=== PATIENT | male | born 1980 ===

== ENCOUNTER 2020-12-24 14:04 | Inpatient (IN) | payer SELFPAY ==
[2020-12-24 22:57] VITALS: BMI 43.7
[2020-12-25] MEDS ORDERED: Acetaminophen 325 MG TAB PO PRN (00:07)
[2020-12-25] MEDS ORDERED: Senokot S 8.6-50 MG TAB PO PRN (00:07)
[2020-12-25] MEDS ORDERED: Dextrose 5% in Water 1,000 ML IV PRN (00:16)
[2020-12-25] MEDS ORDERED: Dextrose 50% Abboject 50 ML SYRINGE SLOW IVP PRN (00:16)
[2020-12-25] MEDS: HumaLOG 300 UNITS/3 ML VIAL SC PRN ×4 (01:05→23:05)
[2020-12-25 01:25] LABS: Hemoglobin A1c 11.2 % (4.0-6.0)
[2020-12-25 01:27] LABS: ALT (SGPT) 24 U/L (8-55); AST (SGOT) 29 U/L (5-34); Albumin 3.4 g/dL (3.5-5.0); Alkaline Phosphatase 113 U/L (40-110); Anion Gap 16 mmol/L (10-20); BUN (Urea Nitrogen) 19 mg/dL (8.9-20.6); Bilirubin, Total 0.4 mg/dL (0.2-1.2); Calc. Creatinine Clearance 221 mL/min (70-130); Calcium 9.5 mg/dL (7.8-10.44); Carbon Dioxide 27 mmol/L (22-29); Chloride 93 mmol/L (98-107); Globulin 4.7 g/dL (2.4-3.5); Glucose 330 mg/dL (70-105); Potassium 3.5 mmol/L (3.5-5.1); Protein, Total 8.1 g/dL (6.0-8.3); Sodium 132 mmol/L (136-145)
[2020-12-25 01:40] LABS: Band 4 % (5-11); Hemoglobin 13.4 g/dL (14.0-18.0); Lymphocytes 11 % (21-51); MDiff Complete? YES; Mean Corpuscular Hemoglobin 29.8 pg (27.0-31.0); Mean Corpuscular Volume 90.2 fL (78.0-98.0); Mean Platelet Volume 7.4 fL (7.4-10.4); Monocytes 1 % (0-10); Neutrophil 84 % (42-75); Platelet Count 476 thou/uL (130-400); RBC Distribution Width 11.8 % (11.5-14.5); Red Blood Cell (RBC) Count 4.48 mill/uL (4.70-6.10); White Blood Cell (WBC) Count 18.5 thou/uL (4.8-10.8)
--- NOTE | 2020-12-25 01:41 | HP ---
This is AAMIR Mehta dictating a report for Yamini Kruger MD. CHIEF COMPLAINT: Shortness of breath. HISTORY OF PRESENT ILLNESS: Mr. Christensen is a 40-year-old male, who went to an emergency room in [place], [place], today, for evaluation of worsening shortness of breath and decreasing O2 saturation while at home. He reports his symptoms started around December 16, has been generally not feeling well, some nausea, shortness of breath, fever, chills. The patient sought care several days ago, was started on Levaquin for pneumonitis and sent home. The patient returned to the emergency room on 12/24/2020, as his PO2 sats dropped to in the 80s around 86%. He was worked up; found to have an elevated white blood cell count, ground-glass opacity on the CT chest; has had several negative COVID tests; and was admitted for the hypoxia, which responded initially to about 4 L of nasal cannula and then dropped, and so he is currently on 2 L of nasal cannula, and his O2 sats fluctuate between 86% and 99% depending on how active he is being at that time. He reports some past medical history of hypertension, hypercholesterolemia, and prediabetes. It is of note that his blood sugar here when on arrival is in the 300s. He is being admitted to telemetry for further management. The patient did try vaping CBD cartridge about 2 weeks ago prior to the start of this episode of shortness of breath and pneumonitis. It is possible that he has sustained some lung inflammation from that. PAST MEDICAL HISTORY: Please see HPI. REVIEW OF SYSTEMS: The patient reports fever, shortness of breath, cough, nausea since the . He denies any chest pain. All systems are reviewed and are negative unless mentioned above or in HPI. SURGICAL HISTORY: None. FAMILY HISTORY: Noncontributory. ALLERGIES: NONE. MEDICATIONS: He takes lisinopril 20 mg p.o. daily. He was placed on Levaquin 2 days ago daily. PHYSICAL EXAMINATION: VITAL SIGNS: Temperature 99.7, pulse is 107, respiratory rate is 24, pO2 sats are 99% on 6 L of nasal cannula, blood pressure is 139/76. CONSTITUTIONAL: He is alert and oriented to person, place, and time. He appears nontoxic appearing. He appears comfortable. Able to complete full sentences. HEENT: Head is atraumatic and normocephalic. Mucous membranes are moist. Mouth is normal. Pupils are equally round and reactive to light. NECK: Normal range of motion. Trachea is midline. RESPIRATORY/CHEST: Chest expansion is equal. He has mild decreased breath sounds in the bases, otherwise clear. CARDIOVASCULAR: He is tachycardic. Regular rhythm. ABDOMEN: Bowel sounds are heard. Nontender on palpation. EXTREMITIES: Upper extremities: Normal range of motion. Motor strength is normal. Radial pulse is normal. Lower extremity: Normal range of motion. Motor strength is normal. Pedal pulses are normal. PLAN/ASSESSMENT: 1. Pneumonitis, certainly appears on CT as similar to COVID-19 infection, although his previous COVID-19 tests he states are negative. We will repeat that in a viral panel today. Albuterol as needed q.4 hours. We have started some dexamethasone 6 mg. As the symptoms suggest COVID-19, we have added additional tests, ferritin, CRP to help us distinguish this. He states he got a steroid injection 2 days ago along with the Levaquin, and this could account for the leukocytosis and his elevated blood sugar. We will keep him on isolation precautions and also continue the Levaquin, which can be deescalated if we believe this is viral. 2. History of hypertension. We will continue his lisinopril. 3. Hyperglycemia. We will add Accu-Cheks a.c. and at bedtime, sliding scale for coverage. We have added an A1c. 4. PUD and DVT prevention started. 5. Case discussed with Dr. Kruger. 6. Hospital course dependent on clinical findings. Job ID: [id number]
[2020-12-25 01:57] LABS: Thyroid Stimulating Hormone 0.5335 uIU/mL (0.35-4.94)
[2020-12-25 05:17] LABS: Ferritin 1265.51 ng/mL (22-322)
[2020-12-25 05:51] LABS: SARS-CoV-2 PCR by NAA Not Detected (NotDetected)
[2020-12-25] MEDS ORDERED: Dexamethasone 4 MG TAB PO SCH (08:00)
[2020-12-25] MEDS ORDERED: FLU VACC QS2020-21(6MOS UP)/PF 60 MCG/0.5 ML SYRINGE IM ONE (09:00)
--- NOTE | 2020-12-25 10:04 | CT ---
EXAM: Chest CT scan without contrast: HISTORY: Pneumonia, questionable Covid, cough, shortness of breath COMPARISON: None FINDINGS: No mediastinal mass or adenopathy. Very extensive diffuse groundglass opacity changes throughout the entire aspects of both right and le ft lungs raising concern for the possibility of extensive bilateral edema versus diffuse atypical pneumonia, although, this does not have a typical appearance of Covid pneumonia. Some other type of v iral or atypical pneumonia is certainly a consideration. No pleural or pericardial effusion. Fatty changes in the liver. 2.6 cm right renal cyst. IMPRESSION: Very extensive diffuse groundglass opacity changes throughout the vast majority of both right and lef t lungs concerning for the possibility of extensive edema versus atypical or viral pneumonia, although this does not have a characteristic appearance of Covid pneumonia.
[2020-12-25] MEDS: Lisinopril 20 MG TAB PO SCH (10:51)
[2020-12-25] MEDS: Enoxaparin Sodium 40 MG/0.4 ML SYRINGE SC SCH (10:51)
[2020-12-25] MEDS: Insulin Glargine 15 UNITS in Pre-Filled Syringe 1 EACH SC SCH ×2 (10:52→23:05)
[2020-12-25 13:27] LABS: HBCM Index 0.08 S/CO (0-0.79); HBSAg Index 0.21 S/CO (0-0.99); HIV (1/2) Antibody/Antigen Non-Reactive (NonReactive); HIV 1/2 INDEX 0.11 S/CO (<1.00); Hep A IgM AB Non-Reactive (NonReactive); Hep A IgM S/CO 0.17 S/CO (0-0.79); Hep B Surf Ag Non-Reactive S/CO (NonReactive); Hep C IgG Ab Non-Reactive (NonReactive); Hep C Index 0.08 S/CO (0-0.79); Hepatitis B Core IgM Abs Non-Reactive (NonReactive)
--- NOTE | 2020-12-25 13:41 | PDOC.HOSPP ---
- Subjective Encounter Date: 12/25/20 Encounter Time: 08:45 Subjective: is on 6 lts nc, feels comfortable on O2 is mobilizing around bed says he started CBD oil and vaping 2 weeks back and his sob started a week back lives with his and children who are not sick is unemployed from 4 months, works in construction has cough with expectoration of yellow sputum, no blood in it. says he had 3 previous covid tests done which were all -ve - Objective Vital Signs & Weight: Vital Signs (12 hours) Temp Pulse Resp BP Pulse Ox 12/25/20 11:03 99.8 F H 113 H 28 H 149/82 H 95 12/25/20 07:34 98.4 F 111 H 16 137/78 100 12/25/20 06:15 99.5 F 104 H 18 144/65 H 99 Weight Weight 271 lb 1.6 oz I&O: 12/24/20 12/25/20 12/26/20 06:59 06:59 06:59 Intake Total 940 Output Total 825 Balance 115 Result Diagrams: 12/25/20 01:00 12/25/20 01:00 Additional Labs: Accuchecks 12/25/20 12/25/20 12/24/20 10:21 06:06 23:25 POC Glucose 338 H 293 H 315 H Hospitalist ROS - Medication Medications: Active Medications Generic Name Dose Route Start Last Admin Trade Name Freq PRN Reason Stop Dose Admin Albuterol/Ipratropium 3 ml 12/25/20 07:00 12/25/20 10:48 Ipratropium/Albuterol Sulfate 3 Ml Neb NEB Not Given [id number] KARIN Dexamethasone 6 mg 12/25/20 08:00 12/25/20 10:51 Dexamethasone 4 Mg Tab PO 6 mg QAM- KARIN Administration Enoxaparin Sodium 40 mg 12/25/20 09:00 12/25/20 10:51 Enoxaparin Sodium 40 Mg/0.4 Ml Syringe SC 40 mg 0900 KARIN Administration Insulin Glargine 15 units/ 0.15 mls @ 0 mls/hr 12/25/20 09:00 12/25/20 10:52 Miscellaneous Medication SC 0.15 mls BID KARIN Administration Insulin Human Lispro 0 units 12/25/20 00:16 12/25/20 06:12 Humalog 300 Units/3 Ml Vial SC 4 unit .MILD SLIDING SCALE PRN Administration Mild Correctional Scale Insulin Human Lispro 0 units 12/25/20 00:16 12/25/20 01:05 Humalog 300 Units/3 Ml Vial SC 4 unit .BEDTIME SLIDING SC PRN Administration Bedtime Correctional Scale Levofloxacin 750 mg 12/25/20 06:00 12/25/20 06:04 Levofloxacin 750 Mg Tab PO 750 mg 0600 KARIN Administration Lisinopril 20 mg 12/25/20 09:00 12/25/20 10:51 Lisinopril 20 Mg Tab PO 20 mg DAILY KARIN Administration Hospitalist Exam Vitals: Vital Signs (12 hours) Temp Pulse Resp BP Pulse Ox 12/25/20 11:03 99.8 F H 113 H 28 H 149/82 H 95 12/25/20 07:34 98.4 F 111 H 16 137/78 100 12/25/20 06:15 99.5 F 104 H 18 144/65 H 99 Weight Weight 271 lb 1.6 oz General Appearance: awake alert Eye: PERRL, anicteric sclera ENT: no oropharyngeal lesions, moist mucosa Neck: supple, no JVD Heart: RRR, no murmur Respiratory: no wheezes, rales, rhonchi Gastrointestinal: soft, non-tender, non-distended, normal bowel sounds Extremities: no cyanosis, no edema Neurological: cranial nerve grossly intact, no focal deficits Psychiatric: normal affect, A&O x 3 Hosp A/P (1) Pneumonia due to COVID-19 virus Code(s): U07.1 - COVID-19; J12.82 - PNEUMONIA DUE TO CORONAVIRUS DISEASE 2019 Status: Suspected (2) Acute respiratory failure with hypoxia Code(s): J96.01 - ACUTE RESPIRATORY FAILURE WITH HYPOXIA Status: Acute (3) Morbid obesity with BMI of 40.0-44.9, adult Code(s): E66.01 - MORBID (SEVERE) OBESITY DUE TO EXCESS CALORIES; Z68.41 - BODY MASS INDEX [BMI]40.0-44.9, ADULT Status: Chronic (4) HTN (hypertension) Code(s): I10 - ESSENTIAL (PRIMARY) HYPERTENSION Status: Chronic Qualifiers: Hypertension type: essential hypertension Qualified Code(s): I10 - Essential (primary) hypertension (5) DM (diabetes mellitus), type 2, uncontrolled Code(s): E11.65 - TYPE 2 DIABETES MELLITUS WITH HYPERGLYCEMIA Status: Acute Qualifiers: Glycemic state: with hyperglycemia Qualified Code(s): E11.65 - Type 2 diabetes mellitus with hyperglycemia - Plan is on dexamethasone, alb inh, levaquin due to atypical features of pna nearly 4 covid 19 tests were -ve per patient, staff to obtain the previous 3 -ve test results lantus bid with coverage, lisinipril to ambulate as tolerated HIV, hep panel, ID consultation, not sure if his symptoms and imaging are related to cbd oil vaping? has high crp of 37, elevated ldh levels hemostable d/w over phone per patients request and gave full updates.
[2020-12-25] MEDS: methylPREDNISolone Sod Succ 40 MG VIAL IVP SCH ×2 (18:15→23:07)
[2020-12-26] MEDS: HumaLOG 300 UNITS/3 ML VIAL SC PRN ×4 (06:07→20:44)
[2020-12-26] MEDS: methylPREDNISolone Sod Succ 40 MG VIAL IVP SCH ×3 (06:09→18:27)
[2020-12-26 06:32] LABS: ALT (SGPT) 43 U/L (8-55); AST (SGOT) 36 U/L (5-34); Albumin 3.3 g/dL (3.5-5.0); Alkaline Phosphatase 108 U/L (40-110); Anion Gap 17 mmol/L (10-20); BUN (Urea Nitrogen) 23 mg/dL (8.9-20.6); Bilirubin, Total 0.4 mg/dL (0.2-1.2); Calc. Creatinine Clearance 223 mL/min (70-130); Calcium 9.3 mg/dL (7.8-10.44); Carbon Dioxide 28 mmol/L (22-29); Chloride 92 mmol/L (98-107); Globulin 4.7 g/dL (2.4-3.5); Glucose 348 mg/dL (70-105); Potassium 4.4 mmol/L (3.5-5.1); Sodium 133 mmol/L (136-145)
[2020-12-26 07:13] LABS: Hemoglobin 13.6 g/dL (14.0-18.0); Mean Corpuscular HGB CONC 31.3 g/dL (32.0-36.0); Mean Corpuscular Hemoglobin 28.3 pg (27.0-31.0); Mean Corpuscular Volume 90.4 fL (78.0-98.0); Mean Platelet Volume 7.4 fL (7.4-10.4); Platelet Count 490 thou/uL (130-400); RBC Distribution Width 11.7 % (11.5-14.5); White Blood Cell (WBC) Count 17.3 thou/uL (4.8-10.8)
[2020-12-26] MEDS: Ipratropium/Albuterol Sulfate 4 GM AER IH SCH ×3 (08:24→18:27)
[2020-12-26] MEDS: Enoxaparin Sodium 40 MG/0.4 ML SYRINGE SC SCH (08:25)
[2020-12-26] MEDS: Insulin Glargine 15 UNITS in Pre-Filled Syringe 1 EACH SC SCH ×2 (08:25→20:42)
[2020-12-26] MEDS: Lisinopril 20 MG TAB PO SCH (08:25)
[2020-12-26 08:41] LABS: Band 15 % (5-11); Lymphocytes 4 % (21-51); MDiff Complete? YES; Monocytes 1 % (0-10); Neutrophil 79 % (42-75); Platelet Morphology Comment Appears Increased; Polychromasia SLIGHT = 2-3 cells (100X) (0-2/hpf); Reactive Lymphocytes 1 % (0-10)
--- NOTE | 2020-12-26 15:04 | PDOC.HOSPP ---
- Subjective Encounter Date: 12/26/20 Subjective: The patient denies any chest pain or cough today. He saturating well on 2 L nasal cannula. - Objective Vital Signs & Weight: Vital Signs (12 hours) Temp Pulse Resp BP Pulse Ox 12/26/20 12:30 98.9 F 79 22 H 142/71 H 96 12/26/20 08:30 98.8 F 87 20 141/81 H 98 12/26/20 05:35 98.6 F 76 18 133/69 98 Weight Admit Weight 271 lb 1.6 oz Weight 271 lb 1.6 oz I&O: 12/25/20 12/26/20 12/27/20 06:59 06:59 06:59 Intake Total 940 440 Output Total 825 Balance 115 440 Result Diagrams: 12/26/20 05:12 12/26/20 05:12 Additional Labs: Accuchecks 12/26/20 12/26/20 12/25/20 11:22 05:38 22:21 POC Glucose 388 H 327 H 343 H 12/25/20 17:29 POC Glucose 324 H Hospitalist ROS - Medication Medications: Active Medications Generic Name Dose Route Start Last Admin Trade Name Freq PRN Reason Stop Dose Admin Albuterol/Ipratropium 0 gm 12/26/20 07:00 12/26/20 12:31 Ipratropium/Albuterol Sulfate 4 Gm Aer IH 1 puff [id number] KARIN Administration Enoxaparin Sodium 40 mg 12/25/20 09:00 12/26/20 08:25 Enoxaparin Sodium 40 Mg/0.4 Ml Syringe SC 40 mg 0900 KARIN Administration Insulin Glargine 15 units/ 0.15 mls @ 0 mls/hr 12/25/20 09:00 12/26/20 08:25 Miscellaneous Medication SC 0.15 mls BID KARIN Administration Insulin Human Lispro 0 units 12/25/20 00:16 12/26/20 12:32 Humalog 300 Units/3 Ml Vial SC 6 unit .MILD SLIDING SCALE PRN Administration Mild Correctional Scale Insulin Human Lispro 0 units 12/25/20 00:16 12/25/20 23:05 Humalog 300 Units/3 Ml Vial SC 4 unit .BEDTIME SLIDING SC PRN Administration Bedtime Correctional Scale Levofloxacin 750 mg 12/25/20 06:00 12/26/20 06:09 Levofloxacin 750 Mg Tab PO 750 mg 0600 KARIN Administration Lisinopril 20 mg 12/25/20 09:00 12/26/20 08:25 Lisinopril 20 Mg Tab PO 20 mg DAILY KARIN Administration Methylprednisolone Sodium Succinate 40 mg 12/25/20 18:00 12/26/20 12:31 Methylprednisolone Sod Succ 40 Mg Vial IVP 40 mg Q6HR KARIN Administration Hospitalist Exam Vitals: Vital Signs (12 hours) Temp Pulse Resp BP Pulse Ox 12/26/20 12:30 98.9 F 79 22 H 142/71 H 96 12/26/20 08:30 98.8 F 87 20 141/81 H 98 12/26/20 05:35 98.6 F 76 18 133/69 98 Weight Admit Weight 271 lb 1.6 oz Weight 271 lb 1.6 oz General Appearance: awake alert Neck: supple Heart: RRR Respiratory: normal chest expansion, no tachypnea Extremities: no cyanosis, no clubbing Hosp A/P (1) Chemical pneumonitis Code(s): J68.0 - BRONCHITIS & PNEUMONITIS D/T CHEMICALS, GAS, FUMES & VAPORS Status: Acute (2) Acute respiratory failure with hypoxia Code(s): J96.01 - ACUTE RESPIRATORY FAILURE WITH HYPOXIA Status: Acute (3) DM (diabetes mellitus), type 2, uncontrolled Code(s): E11.65 - TYPE 2 DIABETES MELLITUS WITH HYPERGLYCEMIA Status: Acute Qualifiers: Glycemic state: with hyperglycemia Qualified Code(s): E11.65 - Type 2 diabetes mellitus with hyperglycemia (4) HTN (hypertension) Code(s): I10 - ESSENTIAL (PRIMARY) HYPERTENSION Status: Chronic Qualifiers: Hypertension type: essential hypertension Qualified Code(s): I10 - Essential (primary) hypertension - Plan Pneumonitis secondary to the effects of synthetic marijuana. Continue supplemental oxygen as needed. Continue corticosteroids. COVID-19 and respiratory viral panel are negative.
--- NOTE | 2020-12-26 16:01 | CON ---
DATE OF CONSULTATION: 12/26/2020 REASON FOR CONSULTATION: Pneumonia. HISTORY OF PRESENT ILLNESS: A 40-year-old who was transferred from [facility] because of lack of hospital beds in that area because of pneumonia. 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 He has a history of obesity, type 2 diabetes, hypertension, and hyperlipidemia. He has had progressively worsening respiratory symptoms with hypoxemia for the past 2 weeks. He was seen in the local [place] ER and has been tested for COVID I believe 4 or 5 times including the 1 done here now and all have been negative. His sats dropped to the mid 80s and had ground-glass opacity changes in the CT scan, so he is admitted for possible COVID. The other possibility is he has been using CBD cartridge for vaping for the past 2 weeks. PAST MEDICAL HISTORY: Includes: 1. Diabetes. 2. Hypertension. 3. Obesity. 4. Hyperlipidemia. PAST SURGICAL HISTORY: Negative. FAMILY HISTORY: Noncontributory. SOCIAL HISTORY: He is , lives with his and kids, none of them have been sick. He never smoked cigarettes. He has been using e-cigarettes, filled a kind of BDO oil of late. ALLERGIES: NONE. MEDICATIONS: 1. He takes lisinopril. 2. He had been taking Levaquin without improvement. PHYSICAL EXAMINATION: VITAL SIGNS: His temperature has been max at 99.8, blood pressure 140/70, heart rate 79, respirations 18 to 22, and O2 saturation 96 on 2 L. GENERAL: He does not appear in much distress right now. He is oriented. He is able to speak in full sentences. SKIN: Normal. No lymphadenopathy. HEENT: Ocular movements conjugate. Oral cavity normal. NECK: Supple. LUNGS: A few scattered inspiratory crackles, more concentrated at the bases. No wheezing. HEART: S1 and S2. Regular rate. ABDOMEN: Soft, not distended or tender. No ascites. No bladder distention. EXTREMITIES: No joint inflammatory activity. NEUROLOGIC: Nonfocal including cognitive function. No edema. Pulses 1+ in dorsalis pedis. Plantar responses are flexor. LABORATORY DATA: White cell count was 18.5 and now 17.3, hemoglobin 13.4, platelets 476, and 84% neutrophils. D-dimer 1.32. Sodium 132 and creatinine 0.79. Transaminases normal and alkaline phosphatase 113. CRP 37.16. Albumin 3.4. TSH 0.53. Ferritin 1265. Hemoglobin A1c 11.2. This is the 5th SARS-CoV RT PCR, which has been negative reportedly. This is the one here in the hospital, the only results I have access. The chest CT done yesterday shows extensive ground-glass opacity changes throughout the vast majority of both right and left lungs. ASSESSMENT: 1. Obesity. 2. Type 2 diabetes. 3. Hypertension with diffuse pneumonitis with multiple negative SARS-CoV-2 RT PCR tests, 4 done in [place] and 1 done here. DISCUSSION: The temporary relationship to CBD oil vaping is significant in view of the association with pneumonitis due to the vitamin E excipient used for mixing the CBD as shown in that outbreak in 2020, but obviously we have this pandemic going on out onto proven, although otherwise this is COVID. We will have to keep in isolation and submit at least 2 COVID antibody test at intervals. If they remain negative, then we will probably call this CBD oil associated pneumonitis rather than COVID. Job ID: [id number] [facility] CENTERChaparro
--- NOTE | 2020-12-26 17:25 | CON ---
DATE OF CONSULTATION: 12/26/2020 HISTORY OF PRESENT ILLNESS: Mr. Christensen is a 40-year-old male who has been out of work for last 4 months. He said he decided to experiment with a THC vaping pod that his friends of use. He has been doing this in his room. There is no one can smelll it. He has multiple kids at home. He presented with complaints of one week of shortness of breath. He has had multiple negative covid tests. PAST MEDICAL HISTORY: Remarkable for: 1. Obesity. 2. Hypertension. 3. Lipid disorder. 4. He says diabetes diagnosed this admission. 5. History of multiple negative COVID tests. FAMILY HISTORY: Negative for lung disease in early age. SOCIAL HISTORY: He is . I believe he told me he had 4 children. The electronic cigarette he has been using is filled with a THC like compound. He says he buys legally at one of these pipe shops. MEDICATIONS: Prior to admission, he is on lisinopril. PHYSICAL EXAMINATION: GENERAL: He is in no distress at rest. He wants to go home. I turned his O2 down to 2 L a minute. VITAL SIGNS: His sats went from 99 to 96. He is afebrile. Heart rate is in the 70s, respiratory rates in the 20s, and blood pressure 142/71. HEAD AND NECK: Unremarkable. LUNGS: Clear. HEART: Regular rhythm. S1 and S2 are normal. ABDOMEN: Soft and nontender. EXTREMITIES: Without clubbing, cyanosis, or edema. LABORATORY DATA: White count 17.3, hemoglobin 13.6, and platelets 490. Electrolytes are normal. Albumin was 3.3. Chest CT shows diffuse ground-glass infiltrates. IMPRESSION AND PLAN: I believe his pulmonary infiltrates related to vaping. His symptoms started after he started doing this. Obviously, a pulmonary hemorrhage syndrome or vasculitis is possible, but the far less likely. Before proceeding with lung biopsies or some aggressive workup, I would suggest steroids and some time and we will see if his infiltrates clear . Inow that his substance is reportedly is "legal", K2 was legal at one point in time and it is horrible and now illegal and has led to multiple fatalities both in our community and [place]. I would assume that this legal marijuana derivative has some contaminant that is creating hypersensitivity reaction in his lungs. This is a 70 min consult with greater than 50% of the time spent on the unit with coordination of care. Job ID: [id number] MTDD
[2020-12-27] MEDS: methylPREDNISolone Sod Succ 40 MG VIAL IVP SCH ×3 (00:16→11:57)
[2020-12-27] MEDS: Ipratropium/Albuterol Sulfate 4 GM AER IH SCH ×3 (00:16→12:00)
[2020-12-27] MEDS: HumaLOG 300 UNITS/3 ML VIAL SC PRN ×2 (06:07→11:55)
--- NOTE | 2020-12-27 08:13 | PRG ---
DATE OF SERVICE: 12/27/2020 SUBJECTIVE: Hua Christensen says he is feeling well. He woke up with oxygen off and said the oximeter alarm was not sounding. OBJECTIVE: VITAL SIGNS: He is afebrile. Heart rates in the 60s, respiratory rates in the teens, oximetry is 99 when I was in the room on 2 L, blood pressure is 151/75 this morning. LUNGS: Clear. IMPRESSION: Diffuse interstitial lung disease, most likely associated with a vaping pen. He needs a 3-4 week steroid taper starting at 40 mg of prednisone for a week, then 30 for a week, then 20 for a week, then 10 mg per week. He can follow up with me in 4-6 weeks for followup chest x-ray. Job ID: [id number]
[2020-12-27] MEDS: Lisinopril 20 MG TAB PO SCH (08:23)
[2020-12-27] MEDS: Enoxaparin Sodium 40 MG/0.4 ML SYRINGE SC SCH (08:23)
[2020-12-27] MEDS: Insulin Glargine 15 UNITS in Pre-Filled Syringe 1 EACH SC SCH (08:28)
--- NOTE | 2020-12-27 09:58 | PDOC.DS.DS ---
Provider Date of Admission: 12/25/20 00:07 Date of Discharge: 12/27/20 Admitting Provider: Yamini Kruger MD Primary Care Physician: Unknown Course Hospital Course: The patient is a 40 old male with past medical history of hypertension who was admitted to the hospital for acute respiratory failure with hypoxia. CT scan of the chest revealed bilateral infiltrates suggesting pneumonitis. COVID-19 and respiratory viral panels were all negative. The patient endorsed vaping CBD cartridge for a few days prior to this onset of her symptoms. She was evaluated by pulmonology and his presentation was deemed to be consistent with chemical pneumonitis caused by synthetic marijuana. He was started on corticosteroids which led to improvement in his oxygenation. He will be placed on a taper for discharge with outpatient follow-up with pulmonology in 1 month. Resuscitation Status: 12/25/20 00:07 Resuscitation Status Routine Co-Sign Provider: Resuscitation Status: FULL: Full Resuscitation Discussed with: patient Lab Results: 12/26/20 05:12 12/26/20 05:12 Abnormal Lab Results - Last 48 hrs 12/25/20 12:21: Lactate Dehydrogenase 521 H 12/26/20 05:12: Sodium 133 L, Chloride 92 L, BUN 23 H, AST 36 H, Albumin 3.3 L, Globulin 4.7 H, Albumin/Globulin Ratio 0.7 L 12/26/20 05:12: WBC 17.3 H, Hgb 13.6 L, MCHC 31.3 L, Plt Count 490 H, Neutrophils % (Manual) 79 H, Band Neuts % (Manual) 15 H, Lymphocytes % (Manual) 4 L, Plt Morphology Comment Appears Increased H Microbiology - Entire Visit 12/25/20 Unknown Nasopharyngeal swab Respiratory Virus Panel (PCR) - Final Vitals: Vital Signs (12 hours) Temp Pulse Resp BP BP Pulse Ox 12/27/20 09:00 98.5 F 66 13 137/74 94 L 12/27/20 07:59 94 L 12/27/20 04:01 98.2 F 66 18 151/75 H 96 12/27/20 00:20 98.5 F 64 18 131/73 97 Weight Admit Weight 271 lb 1.6 oz Weight 271 lb 1.6 oz Physical Exam: The patient was seen and examined on the day of discharge. Problem (1) Chemical pneumonitis Code(s): J68.0 - BRONCHITIS & PNEUMONITIS D/T CHEMICALS, GAS, FUMES & VAPORS Status: Acute (2) Acute respiratory failure with hypoxia Code(s): J96.01 - ACUTE RESPIRATORY FAILURE WITH HYPOXIA Status: Acute (3) DM (diabetes mellitus), type 2, uncontrolled Code(s): E11.65 - TYPE 2 DIABETES MELLITUS WITH HYPERGLYCEMIA Status: Acute Qualifiers: Glycemic state: with hyperglycemia Qualified Code(s): E11.65 - Type 2 diabetes mellitus with hyperglycemia (4) HTN (hypertension) Code(s): I10 - ESSENTIAL (PRIMARY) HYPERTENSION Status: Chronic Qualifiers: Hypertension type: essential hypertension Qualified Code(s): I10 - Essential (primary) hypertension Plan Prescriptions: predniSONE 10 mg PO ASDIR #66 tab Home Medications: Medication Instructions Recorded Confirmed Type Lisinopril 20 mg PO DAILY 12/24/20 12/24/20 History predniSONE 10 mg PO ASDIR #66 tab 12/27/20 Rx Allergies: No Known Allergies Allergy (Verified 12/24/20 22:57) Referrals: Unknown,Unknown [Primary Care Provider] - Disposition: HOME Quality CORE MEASURES:: N/A
[2020-12-27 13:03] VITALS: BP 141/80; TEMP 98.7
[2020-12-27 20:14] LABS: SARS-CoV-2 IgG Ab Non-Reactive (NonReactive); SARS-CoV-2 IgG Index 0.06 S/CO (< 1.40)
== END 2020-12-27 15:31 | disposition home or self-care (01) | DRG 917 ==
LOC: 2SW 21:29 → OBSVTOIN 12-25 00:07
PROVIDERS: ADMIT Internal Medicine; ATTEND Internal Medicine
DX: T40.7X1A Poisoning by cannabis (derivatives), accidental (unintentional), initial encounter (principal); J96.01 Acute respiratory failure with hypoxia; J68.0 Bronchitis and pneumonitis due to chemicals, gases, fumes and vapors; Z68.41 Body mass index [BMI] 40.0-44.9, adult; Z20.822 Contact with and (suspected) exposure to COVID-19; U07.0 Vaping-related disorder; E11.65 Type 2 diabetes mellitus with hyperglycemia; I10 Essential (primary) hypertension; E66.01 Morbid (severe) obesity due to excess calories; Z28.21 Immunization not carried out because of patient refusal; Z79.899 Other long term (current) drug therapy
CPT/HCPCS: 36415; 36416; 71250; 80053; 80074; 82728; 83036; 83615; 83880; 84443; 85025; 85379; 86140; 86769; 87389; 87633; 87635; J1650; J1815; J2920; J8540; U0003; U0005